=== PATIENT | male | born 1975 | race Caucasian/White ===

== ENCOUNTER 2017-02-04 08:19 | Emergency (ER) | payer MEDICAID ==
[~2017-02-04] VITALS: Ht 180.3 cm; Wt 117.9 kg
[2017-02-04 09:02] LABS: Basophils # (auto) 0 uL; Basophils % (auto) 0.3 % (0.0-2.0); CONDITION Y; Eosinophils # (auto) 0 uL; Eosinophils % (auto) 0.3 % (0.0-7.0); Hematocrit 49.6 % (41.0-53.0); Hemoglobin 16.9 g/dL (13.5-17.5); Lymphocytes # (auto) 1.4 uL; Lymphocytes % (auto) 15.2 % (10.0-50.0); Mean Corpuscular Hemoglobin 28.8 pg (28.0-32.0); Mean Corpuscular Volume 84.7 fL (80.0-100.0); Mean Platelet Volume 8.8 fL (7.4-10.4); Monocytes # (auto) 0.8 uL; Monocytes % (auto) 8.5 % (0.0-12.0); Neutrophils # (auto) 7.2 uL; Neutrophils % (auto) 75.7 % (37.0-80.0); Platelet Count (auto) 220 10^3/uL (140-450); Red Cell Distribution Width 14.6 % (11.6-16.0); White Blood Cell 9.5 10^3/uL (4.4-10.8)
[2017-02-04 09:11] LABS: Anion Gap 11 (5-15); BUN/Creatinine Ratio 21.3; Blood Urea Nitrogen 23 mg/dL (7-18); Calcium 9.9 mg/dL (8.5-10.1); Carbon Dioxide 24 mmol/L (21-32); Chloride 98 mmol/L (98-107); GFR African American 97 mL/min; GFR Non-African American 80 mL/min; Glucose 109 mg/dL (74-106); Potassium 3.4 mmol/L (3.5-5.1); Sodium 133 mmol/L (136-145)
[2017-02-04] MEDS ORDERED: LORazepam 0.5 MG TAB PO ONE (09:45)
[2017-02-04] MEDS: LEVETIRACETAM 500 MG TAB PO SCH (19:17)
[2017-02-05] MEDS ORDERED: LORazepam 0.5 MG TAB PO SCH (02:00)
[2017-02-05] MEDS ORDERED: LORazepam 0.5 MG TAB ONE ×2 (06:34→12:48)
[2017-02-05] MEDS: LEVETIRACETAM 500 MG TAB PO SCH ×2 (09:41→22:43)
[2017-02-05] MEDS ORDERED: LORazepam 0.5 MG TAB PO PRN (12:51)
[2017-02-05] MEDS ORDERED: HALOPERIDOL LACTATE 5 MG/ML INJ VIAL ONE (14:02)
[2017-02-05] MEDS ORDERED: LORazepam 2MG/ML-1ML VIAL ONE (14:02)
[2017-02-05] MEDS ORDERED: LORazepam 2MG/ML-1ML VIAL IM ONE ×2 (14:10→14:15)
[2017-02-05] MEDS ORDERED: HALOPERIDOL LACTATE 5 MG/ML INJ VIAL IM ONE (14:15)
[2017-02-06 09:45] VITALS: BP 127/74
== END 2017-02-06 11:01 | disposition short-term general hospital (02) ==
LOC: ER 08:19
DX: F20.9 Schizophrenia, unspecified (principal); F32.9 Major depressive disorder, single episode, unspecified; R45.851 Suicidal ideations; F17.210 Nicotine dependence, cigarettes, uncomplicated; F14.10 Cocaine abuse, uncomplicated
CPT/HCPCS: 36415; 80048; 80307; 80320; 85025; 96372; 99285; J1630; J2060